=== PATIENT | male | born 1955 | race Caucasian/White ===

== ENCOUNTER 2020-02-04 11:03 | Emergency (ER) | payer OTHER, SELFPAY ==
[~2020-02-04] VITALS: Ht 180.3 cm; Wt 70.0 kg
[2020-02-04] MEDS ORDERED: KETOROLAC 30 MG/1 ML ONE (11:19)
[2020-02-04] MEDS ORDERED: DIPHENHYDRAMINE 50 MG/ML, 1ML ONE (11:19)
[2020-02-04] MEDS ORDERED: METOCLOPRAMIDE 5 MG/ML, 2ML ONE (11:19)
--- NOTE | 2020-02-04 11:26 | NUR ---
PATIENT BIB [facility] AFTER PATIENT WAS SEEN AT [place] YESTERDAY FOR GARZA X2 MONTHS, WHICH HAS GOTTEN PROGRESSIVELY WORSE X1 WEEK, PATIENT WAS SENT FOR MRI DUE TO [facility]S MRI MACHINE BEING DOWN. PATIENT DID HAVE CT DONE AT [place] WHICH PATIENT REPORTS WAS "NEGATIVE." PATIENT ALSO STARTED EXPERIENCING DOUBLE AND BLURRY VISION THIS MORNING 02/04/2020 IN LEFT EYE WITH LEFT EYE PTOSIS. PATIENT STATES HIS PAIN LEVEL NOW IS 9/10. PATIENT A&OX4, PATIENT DENIES NUMBNESS/TINGLING, NEURO INTACT. [facility]
--- NOTE | 2020-02-04 11:27 | NUR ---
PATIENT MEDICATED PER [facility], 1000 mL BOLUS STARTED.
[2020-02-04] MEDS ORDERED: SODIUM CHLORIDE FLUSH 10ML SYR IVF ONE (11:30)
[2020-02-04] MEDS ORDERED: DIPHENHYDRAMINE 50 MG/ML, 1ML IVPush ONE (11:30)
[2020-02-04] MEDS ORDERED: METOCLOPRAMIDE 5 MG/ML, 2ML IVPush ONE (11:30)
[2020-02-04] MEDS ORDERED: KETOROLAC 30 MG/1 ML IVPush ONE (11:30)
[2020-02-04] MEDS ORDERED: SODIUM CHLORIDE 0.9% 1,000ML IVBOLUS ONE (11:30)
[2020-02-04] MEDS ORDERED: GADOTERATE 7.5 MMOL/15 ML SYR ONE (12:24)
--- NOTE | 2020-02-04 12:36 | NUR ---
PT RETURNED FROM MRI. HE TOLERATED THE IMAGING WELL.
--- NOTE | 2020-02-04 12:47 | NUR ---
PT ANVULATED TO THE RESTROOM WITH A STEADY GAIT. SIGNIFICANT RELIEF ACHIEVED FROM COMPUTER SYSTEMS ENGINEER. WE WILL CONTINUE TO MONITOR AND TREAT ORDERED, WELL PRN WHILE AWAITING AN MD TO RECHECK.
[2020-02-04 14:21] VITALS: BP 155/87
--- NOTE | 2020-02-04 14:26 | NUR ---
Patient given discharge instructions and they have confirmed that they understand the instructions. IV REMOVED WITH TIP INTACT, ALL PATIENT BELONGINGS GATHERED. Patient ambulatory with steady gait.
== END 2020-02-04 14:24 | disposition home or self-care (01) ==
LOC: ED 13:11
DX: H49.02 Third [oculomotor] nerve palsy, left eye (principal); H49.12 Fourth [trochlear] nerve palsy, left eye; R51 Headache; I10 Essential (primary) hypertension; M10.9 Gout, unspecified
CPT/HCPCS: 70544; 70553; 96361; 96374; 96375; 99285; A9575; J1200; J1885; J2765; J7030